=== PATIENT | female | born 1945 | race Caucasian/White ===

== ENCOUNTER 2017-07-24 16:17 | Inpatient (IN) | payer OTHER ==
[~2017-07-24] VITALS: Ht 152.4 cm; Wt 67.7 kg
[~2017-07-24 16:17] MED LIST: ADVAIR HFA120 INHALA IH; ADVIL,NUPRIN,M200 MG PO; AMLODIPINE BESY10 MG PO; ANASTROZOLE1 MG PO; CARISOPRODOL350 MG PO; GABAPENTIN300 MG PO; LEVAQUIN500 MG PO; LISINOPRIL40 MG PO; METOPROLOL TART50 MG PO; MS CONTIN,ORAMO30 MG PO; PRAVASTATIN SOD40 MG PO; PREDNISONE20 MG PO; PROAIR HFA8.5 GM IH; PROTONIX40 MG PO; XANAX0.25 MG PO
[2017-07-24 17:50] LABS: HEMATOCRIT 34.8 % (36.0-46.0); HEMOGLOBIN 10.9 G/DL (11.9-15.5); MCH 27.9 PG (29.0-34.0); MCHC 31.3 G/DL (30.0-36.0); PLATELET COUNT 233 K/uL (156-360); RBC DIS.WIDTH-CV 14.1 % (11.8-14.6); RBC DIS.WIDTH-SD 46.2 % (39-53); RED BLOOD COUNT 3.91 M/uL (3.80-5.20); WHITE BLOOD COUNT 6.7 K/uL (4.1-10.2)
[2017-07-24 18:07] LABS: CHLORIDE 101 mEq/L (99-109); POTASSIUM 4.1 mEq/L (3.7-5.4); SODIUM 133 mEq/L (136-147)
[2017-07-24 18:09] LABS: GLUCOSE 109 mg/dL (70-99)
[2017-07-24 18:13] LABS: APPEARANCE SL.HAZY ((CLEAR)); BILIRUBIN NEGATIVE; BLOOD NEGATIVE; COLOR YELLOW ((YELLOW)); GLUCOSE (STRIP) NEGATIVE; KETONES NEGATIVE; LEUKOCYTES NEGATIVE; NITRITE NEGATIVE; PROTEIN (STRIP) 30; SPECIFIC GRAVITY 1.015 (1.000-1.030); UROBILINOGEN 0.2 MG/DL (0.2-1.0)
[2017-07-24 18:13] LABS: CREATININE 3.4 mg/dL (0.6-1.3); GFR ESTIMATE (CALCULATED) 14 mL/min/
[2017-07-24 18:14] LABS: UREA NITROGEN (BUN) 25 mg/dL (9-23)
[2017-07-24 18:49] LABS: BACTERIA RARE /HPF; CALCIUM OXALATE CRYSTALS 1+ /HPF; EPITHELIAL CELLS 2+ /HPF; MUCUS TRACE /LPF; RED BLOOD CELLS 0-5 /HPF (0-5); UCUL ADDED? YES
[2017-07-24] MEDS ORDERED: VENTOLIN HFA18 GM IH (20:48)
[2017-07-24] MEDS ORDERED: SYMBICORT60 INHALAT IH (20:50)
[2017-07-24] MEDS ORDERED: CARAFATE1 GM PO (20:51)
[2017-07-24] MEDS ORDERED: CIPRO500 MG PO (20:51)
[2017-07-25 00:46] VITALS: BP 144/63
[2017-07-25 03:48] VITALS: BP 107/52
[2017-07-25 06:10] LABS: BASOPHIL COUNT 0.1 K/uL (0-0.1); EOSINOPHIL (%) 2.4 % (0-5); EOSINOPHIL COUNT 0.2 K/uL (0-0.3); HEMATOCRIT 34.3 % (36.0-46.0); HEMOGLOBIN 10.4 G/DL (11.9-15.5); IMMATURE GRANULOCYTE (%) 0.2 % (0.0-0.7); LYMPHOCYTE (%) 22.2 % (15-42); LYMPHOCYTE COUNT 1.4 K/uL (1.0-2.8); MCHC 30.3 G/DL (30.0-36.0); MCV 89.1 FL (83-99); MONOCYTE (%) 9.8 % (3-12); MONOCYTE COUNT 0.6 K/uL (0-0.8); NEUTROPHIL (%) 64.4 % (45-76); PLATELET COUNT 217 K/uL (156-360); RBC DIS.WIDTH-CV 13.7 % (11.8-14.6); RBC DIS.WIDTH-SD 44.9 % (39-53); RED BLOOD COUNT 3.85 M/uL (3.80-5.20); WHITE BLOOD COUNT 6.2 K/uL (4.1-10.2)
[2017-07-25 06:30] LABS: CHLORIDE 100 MEQ/L (99-109); GFR ESTIMATE (CALCULATED) 18 mL/min/; GLUCOSE 104 mg/dL (70-99); POTASSIUM 3.8 MEQ/L (3.7-5.4); SODIUM 132 MEQ/L (136-147); UREA NITROGEN (BUN) 22 mg/dL (9-23)
[2017-07-25 06:37] LABS: CREATININE 2.8 MG/DL (0.6-1.3)
[2017-07-25 08:00] VITALS: BP 121/55
[2017-07-25 12:20] VITALS: BP 112/54
[2017-07-25 13:19] LABS: UR CREATININE CONCENTRATION 83.6 MG/DL
[2017-07-25 16:00] VITALS: BP 113/56
[2017-07-25 20:12] VITALS: BP 112/57
[2017-07-26 00:16] VITALS: BP 107/56
[2017-07-26 04:00] VITALS: BP 111/60
[2017-07-26 06:31] LABS: ALBUMIN 2.9 G/DL (3.2-4.8); CHLORIDE 106 MEQ/L (99-109); GFR ESTIMATE (CALCULATED) 24 mL/min/; GLUCOSE 85 mg/dL (70-99); POTASSIUM 4.2 MEQ/L (3.7-5.4); SODIUM 136 MEQ/L (136-147); UREA NITROGEN (BUN) 23 mg/dL (9-23)
[2017-07-26 06:32] LABS: CREATININE 2.1 MG/DL (0.6-1.3)
[2017-07-26 07:21] VITALS: BP 110/64
[2017-07-26 11:08] VITALS: BP 102/58
[2017-07-26 16:01] VITALS: BP 117/65
[2017-07-26 20:00] VITALS: BP 128/66
[2017-07-27] VITALS: BP 138/68
[2017-07-27 03:59] VITALS: BP 141/71
[2017-07-27 06:08] LABS: HEMOGLOBIN 10.5 G/DL (11.9-15.5); MCHC 31.8 G/DL (30.0-36.0); PLATELET COUNT 208 K/uL (156-360); RBC DIS.WIDTH-CV 13.6 % (11.8-14.6); RBC DIS.WIDTH-SD 43.8 % (39-53); RED BLOOD COUNT 3.75 M/uL (3.80-5.20); WHITE BLOOD COUNT 5.2 K/uL (4.1-10.2)
[2017-07-27 06:38] LABS: CHLORIDE 103 MEQ/L (99-109); CREATININE 1.8 MG/DL (0.6-1.3); GFR ESTIMATE (CALCULATED) 29 mL/min/; GLUCOSE 95 mg/dL (70-99); PHOSPHORUS 3.7 mg/dL (2.5-4.9); POTASSIUM 4.5 MEQ/L (3.7-5.4); SODIUM 134 MEQ/L (136-147); UREA NITROGEN (BUN) 27 mg/dL (9-23)
[2017-07-27 07:45] VITALS: BP 137/68
[2017-07-27 11:45] VITALS: BP 147/63
[2017-07-27 16:03] VITALS: BP 142/73
[2017-07-27 19:34] VITALS: BP 134/62
[2017-07-28 00:20] VITALS: BP 142/71
[2017-07-28 03:48] VITALS: BP 154/68
[2017-07-28] MEDS ORDERED: AUGMENTIN875 MG PO (08:48)
[2017-07-28 08:50] VITALS: BP 142/71
[2017-07-28 09:43] LABS: CHLORIDE 100 MEQ/L (99-109); CREATININE 1.5 MG/DL (0.6-1.3); GFR ESTIMATE (CALCULATED) 36 mL/min/; GLUCOSE 89 mg/dL (70-99); SODIUM 133 MEQ/L (136-147); UREA NITROGEN (BUN) 30 mg/dL (9-23)
[2017-07-28 09:48] LABS: POTASSIUM 3.1 MEQ/L (3.7-5.4)
[2017-07-28 11:57] VITALS: BP 147/69
[2017-07-28] MEDS ORDERED: LISINOPRIL40 MG PO (13:32)
[2017-07-28 14:35] LABS: TOTAL PROTEIN 5.9 G/DL (6.4-8.2)
[2017-07-31 16:02] LABS: ALBUMIN 2.87 G/DL (3.6-4.9); ALPHA-1 GLOBULIN 0.38 G/DL (0.15-0.40); ALPHA-2 GLOBULIN 0.86 G/DL (0.45-0.85); BETA-GLOBULIN 0.63 G/DL (0.65-1.15); GAMMA-GLOBULIN 1.16 G/DL (0.60-1.35)
== END 2017-07-28 15:17 | disposition home or self-care (01) | DRG 917 ==
LOC: EME 16:17 → 5SOUTH 23:03 → EDOF 23:03 → ENRESERV 23:05 → 5SOUTH 07-25 00:19 → ENPENDDIS 07-28 13:20 → 5SOUTH 07-28 15:17
PROVIDERS: Hospitalist; Internal Medicine
DX: T42.6X1A Poisoning by other antiepileptic and sedative-hypnotic drugs, accidental (unintentional), initial encounter (principal); N14.1 Nephropathy induced by other drugs, medicaments and biological substances; G92 Toxic encephalopathy; N17.9 Acute kidney failure, unspecified; E86.0 Dehydration; J96.01 Acute respiratory failure with hypoxia; J18.9 Pneumonia, unspecified organism; J44.0 Chronic obstructive pulmonary disease with (acute) lower respiratory infection; J44.1 Chronic obstructive pulmonary disease with (acute) exacerbation; J81.1 Chronic pulmonary edema; E87.1 Hypo-osmolality and hyponatremia; E83.51 Hypocalcemia; E87.6 Hypokalemia; T46.4X5A Adverse effect of angiotensin-converting-enzyme inhibitors, initial encounter; T39.395A Adverse effect of other nonsteroidal anti-inflammatory drugs [NSAID], initial encounter; I10 Essential (primary) hypertension; E78.5 Hyperlipidemia, unspecified; M06.9 Rheumatoid arthritis, unspecified; G89.29 Other chronic pain; M19.90 Unspecified osteoarthritis, unspecified site; Z79.891 Long term (current) use of opiate analgesic; Z85.3 Personal history of malignant neoplasm of breast; Z87.891 Personal history of nicotine dependence; Z92.3 Personal history of irradiation; Z83.3 Family history of diabetes mellitus
CPT/HCPCS: 70450; 71045; 71046; 76770; 80048; 80069; 81003; 82306; 82330; 82570; 84145 90; 84155; 84156; 84165; 85025; 85027; 87040; 87070; 87086; 87205; 87449; 93005; 94640; 94640 76; 94799; 99202; 99281; 99285; J0456; J0696; J1644; J7030; J7040; J7512